=== PATIENT | female | born 1950 | race African-American/Black ===

== ENCOUNTER 2019-02-05 09:58 | Inpatient (IN) | payer OTHER ==
[~2019-02-05] VITALS: Ht 177.8 cm; Wt 101.2 kg
[2019-02-05 15:41] LABS: BASOPHILS % 0.6 % (0.0-2.0); EOSINOPHILS % 0.4 % (0.0-5.0); HEMATOCRIT. 43.1 % (36.0-48.0); HEMOGLOBIN. 13.5 g/dL (12.0-16.0); MEAN CORPUSCULAR HEMOGLOBIN 30.7 pg (28.0-32.0); MEAN CORPUSCULAR VOLUME 97.9 fL (81.0-99.0); MEAN PLATELET VOLUME 7.7 fl (7.4-10.4); MONOCYTES % 9.3 % (2.0-8.0); NEUTROPHILS % 63.7 % (40.0-76.0); PLATELET 303 x1000/uL (130-400); RED CELL DISTRIBUTION WIDTH 16.6 % (11.6-14.6)
[2019-02-05 15:45] LABS: CHLORIDE 108 mEq/L (98-107)
[2019-02-05 16:08] LABS: CLARITY URINE CLEAR (CLEAR); COLOR URINE YELLOW (YELLOW); KETONES URINE TRACE (NEGATIVE); LEUKOCYTE ESTERASE URINE NEGATIVE (NEGATIVE); NITRITE URINE NEGATIVE (NEGATIVE); OCCULT BLOOD URINE TRACE (NEGATIVE); PROTEIN URINE NEGATIVE (NEGATIVE); SPECIFIC GRAVITY URINE 1.025 (1.005-1.030); UROBILINOGEN URINE 0.2 E.U./dL (0.2-1.0)
[2019-02-05 16:24] LABS: *AMPHETAMINES SCREEN URINE NEGATIVE (NEGATIVE); *BARBITURATES SCREEN URINE NEGATIVE (NEGATIVE); *BENZODIAZEPINES SCREEN URINE NEGATIVE (NEGATIVE); *COCAINE SCREEN URINE NEGATIVE (NEGATIVE); METHADONE URINE SCREEN NEGATIVE (NEGATIVE)
[2019-02-05 16:25] LABS: CANNABINOID URINE SCREEN NEGATIVE (NEGATIVE); OPIATES URINE SCREEN NEGATIVE (NEGATIVE); PHENCYCLIDINE URINE SCREEN NEGATIVE (NEGATIVE)
[2019-02-05] MEDS ORDERED: ASPIRIN 81MG TABLET PO ONE (17:30)
[2019-02-05] MEDS ORDERED: HYDROCHLOROTHIAZIDE 25MG TABLET PO ONE (19:30)
[2019-02-05] MEDS ORDERED: LOSARTAN POTASSIUM 25 MG TABLET PO ONE ×2 (19:30→21:15)
[2019-02-05] MEDS ORDERED: HYDROCHLOROTHIAZIDE 12.5MG CAPSULE PO ONE (21:15)
[2019-02-05] MEDS ORDERED: MAGNESIUM/ALUMINUM HYDROXIDE/SIMETHICONE 30ML UDC PO PRN (22:30)
[2019-02-05] MEDS ORDERED: NA PHOS,M-B/NA PHOS,DI-BA ENEMA 118ML PR PRN (22:30)
[2019-02-05] MEDS ORDERED: ONDANSETRON HCL 4MG/2ML INJ IV PRN (22:30)
[2019-02-05] MEDS ORDERED: ACETAMINOPHEN 650MG SUPP PR PRN (22:30)
[2019-02-05] MEDS ORDERED: ACETAMINOPHEN 325MG TABLET PO PRN (22:30)
[2019-02-05] MEDS ORDERED: DIPHENHYDRAMINE 50MG/ML VIAL IV PRN (22:30)
[2019-02-05] MEDS ORDERED: ACETAMINOPHEN 650MG/20.3ML UDC GT PRN (22:30)
[2019-02-05] MEDS ORDERED: GUAIFENESIN 200MG/10ML SUGAR FREE UDC PO PRN (22:30)
[2019-02-05] MEDS ORDERED: IPRATROPIUM/ALBUTEROL 0.5-3(2.5)MG/3ML NEB INH PRN (22:30)
[2019-02-05] MEDS ORDERED: DOCUSATE SODIUM 100MG CAPSULE PO PRN (22:30)
[2019-02-05] MEDS: CLONIDINE 0.1MG TABLET PO PRN (23:11)
[2019-02-05] MEDS: HYDROCODONE/ACETAMINOPHEN 5/325MG TABLET PO PRN (23:12)
[2019-02-06] MEDS: SODIUM CHLORIDE 0.9% 1,000 ML IV SCH ×2 (00:42→09:50)
[2019-02-06 02:45] VITALS: BP 150/77
[2019-02-06] MEDS: SODIUM CHLORIDE 0.9% INJ 3ML FLUSH IVF SCH ×3 (06:00→21:14)
[2019-02-06 06:53] LABS: BASOPHILS % 0.7 % (0.0-2.0); EOSINOPHILS % 1.5 % (0.0-5.0); HEMATOCRIT. 40.5 % (36.0-48.0); HEMOGLOBIN. 12.8 g/dL (12.0-16.0); LYMPHOCYTES % 28.6 % (20.0-50.0); MEAN CORPUSCULAR HEMOGLOBIN 30.6 pg (28.0-32.0); MEAN CORPUSCULAR VOLUME 96.6 fL (81.0-99.0); MEAN PLATELET VOLUME 8.3 fl (7.4-10.4); MONOCYTES % 10.8 % (2.0-8.0); NEUTROPHILS % 58.4 % (40.0-76.0); PLATELET 265 x1000/uL (130-400); RED BLOOD CELL COUNT 4.19 mill/uL (4.2-5.4); RED CELL DISTRIBUTION WIDTH 16.5 % (11.6-14.6)
[2019-02-06 07:15] LABS: CHLORIDE 106 mEq/L (98-107)
[2019-02-06 07:22] LABS: LDL CHOLESTEROL 80 mg/dL (5-100)
[2019-02-06 07:24] LABS: HDL CHOLESTEROL 47 mg/dL (40-59)
[2019-02-06 08:00] VITALS: BP 122/66
[2019-02-06 08:01] LABS: CREATINE KINASE 68 IU/L (26-192)
[2019-02-06 12:00] VITALS: BP 144/79
[2019-02-06] MEDS ORDERED: DEXTROSE 50% WATER 50ML SYRINGE IV PRN ×2 (12:30→14:30)
[2019-02-06] MEDS ORDERED: METHYLPREDNISOLONE SOD SUCC 40 MG/ML VIAL IV SCH (12:30)
[2019-02-06] MEDS: INSULIN LISPRO 100 UNITS/ML SUBCUT SCH ×3 (12:40→20:45)
[2019-02-06 16:00] VITALS: BP_SYST 161; BP_SYST 182; BP_DIAS 112; BP_DIAS 75
[2019-02-06] MEDS: BLOOD SUGAR DIAGNOSTIC STRIP TEST SCH ×2 (16:25→20:26)
[2019-02-06] MEDS: VISCOUS LIDOCAINE 2% 15 ML UDC MM SCH (16:25)
[2019-02-06 16:46] LABS: INR 1.2
[2019-02-06 17:08] LABS: CREATINE KINASE MB FRACTION 6.9 ng/mL (0.5-3.6)
[2019-02-06] MEDS ORDERED: BLOOD SUGAR DIAGNOSTIC STRIP TEST SCH (17:10)
[2019-02-06] MEDS ORDERED: INSULIN LISPRO 100 UNITS/ML SUBCUT SCH (17:40)
[2019-02-06] MEDS: CLONIDINE 0.1MG TABLET PO PRN (18:00)
[2019-02-06 20:00] VITALS: BP_SYST 116; BP_SYST 139; BP_DIAS 70; BP_DIAS 79
[2019-02-06 23:24] VITALS: BP 139/79
[2019-02-06] MEDS: HYDROCODONE/ACETAMINOPHEN 5/325MG TABLET PO PRN (23:24)
[2019-02-07 04:00] VITALS: BP_SYST 131; BP_SYST 141; BP_DIAS 71; BP_DIAS 76
[2019-02-07] MEDS: BLOOD SUGAR DIAGNOSTIC STRIP TEST SCH ×2 (06:17→12:50)
[2019-02-07] MEDS: VISCOUS LIDOCAINE 2% 15 ML UDC MM SCH ×3 (06:18→18:07)
[2019-02-07] MEDS: INSULIN LISPRO 100 UNITS/ML SUBCUT SCH ×2 (06:19→12:40)
[2019-02-07 08:00] VITALS: BP 131/71
[2019-02-07] MEDS: SODIUM CHLORIDE 0.9% 1,000 ML IV SCH (09:53)
[2019-02-07] MEDS: SODIUM CHLORIDE 0.9% INJ 3ML FLUSH IVF SCH ×2 (09:53→18:07)
[2019-02-07 11:19] LABS: T4 FREE 1.3 ng/dL (0.76-1.46)
[2019-02-07 12:00] VITALS: BP 134/63
[2019-02-07] MEDS ORDERED: IOHEXOL-350 100 ML BOTTLE ONE (14:37)
[2019-02-07 16:00] VITALS: BP 142/92
[2019-02-07 16:18] LABS: BASOPHILS % 0.1 % (0.0-2.0); HEMOGLOBIN. 13.3 g/dL (12.0-16.0); MEAN CORPUSCULAR HEMOGLOBIN 30.4 pg (28.0-32.0); MEAN PLATELET VOLUME 8.7 fl (7.4-10.4); MONOCYTES % 5.8 % (2.0-8.0); NEUTROPHILS % 77.1 % (40.0-76.0); PLATELET 303 x1000/uL (130-400); RED BLOOD CELL COUNT 4.37 mill/uL (4.2-5.4); RED CELL DISTRIBUTION WIDTH 16.3 % (11.6-14.6)
[2019-02-07 16:27] LABS: CHLORIDE 106 mEq/L (98-107)
[2019-02-07 16:35] LABS: CREATINE KINASE MB FRACTION 4.3 ng/mL (0.5-3.6)
[2019-02-07 19:26] LABS: *AMPHETAMINES SCREEN URINE NEGATIVE (NEGATIVE); *BARBITURATES SCREEN URINE NEGATIVE (NEGATIVE); *BENZODIAZEPINES SCREEN URINE NEGATIVE (NEGATIVE); *COCAINE SCREEN URINE NEGATIVE (NEGATIVE); METHADONE URINE SCREEN NEGATIVE (NEGATIVE); OPIATES URINE SCREEN PRESUMTIVE POSITIVE (NEGATIVE)
[2019-02-07 19:27] LABS: CANNABINOID URINE SCREEN NEGATIVE (NEGATIVE); PHENCYCLIDINE URINE SCREEN NEGATIVE (NEGATIVE)
[2019-02-07 19:37] VITALS: BP_SYST 142; BP_SYST 166; BP_DIAS 81; BP_DIAS 92
[2019-02-07 19:58] VITALS: BP 166/81
[2019-02-07] MEDS: CLONIDINE 0.1MG TABLET PO PRN (20:43)
== END 2019-02-07 21:00 | disposition short-term general hospital (02) | DRG 641 ==
LOC: ER 09:58 → 8WST 18:26 → EDBEDREQ 18:29 → ENRESERV 02-06 01:44
PROVIDERS: ADMIT Family Medicine; ATTEND Family Medicine
DX: E86.0 Dehydration (principal); I10 Essential (primary) hypertension; E11.9 Type 2 diabetes mellitus without complications; E87.70 Fluid overload, unspecified; K13.79 Other lesions of oral mucosa; W19.XXXA Unspecified fall, initial encounter; Y93.89 Activity, other specified; Y92.89 Other specified places as the place of occurrence of the external cause; Y99.8 Other external cause status; Z86.73 Personal history of transient ischemic attack (TIA), and cerebral infarction without residual deficits
CPT/HCPCS: 36415; 71045; 71275; 80061; 80305; 82550; 82553; 82962; 83036; 83605; 83880; 84439; 84443; 84484; 85379; 93005; 93306; 93970; 97162; 99285; C1893; J2920; Q9967